=== PATIENT | male | born 1975 | race Caucasian/White ===

== ENCOUNTER 2017-10-13 12:22 | Emergency (ER) | payer SELFPAY ==
[2017-10-13 13:15] LABS: Absolute Lymphocytes (CBC) 1.2 K/uL (0.7-4.9); Absolute Monocytes 0.5 K/uL (0.1-1.3); Absolute Neutrophil 4.4 K/uL (1.8-8.0); Basophils % 0.5 % (0-1.3); Eosinophils % 2.3 % (0-4.4); Hematocrit 42.4 % (39.6-49.0); Lymphocytes % 19.6 % (15.3-44.8); MCH 29.9 pg (27.0-35.0); MCV 91.2 fL (80-100); MPV 8.1 fL (7.6-11.3); Monocytes % 7.3 % (3.3-12.3); RBC Red Blood Cell Count 4.64 M/uL (4.33-5.43)
--- NOTE | 2017-10-13 13:21 | RAD REPORT ---
EXAM DESCRIPTION: RAD - Chest Single View - 10/13/2017 1:11 pm CLINICAL HISTORY: Chest pain radiating to the left arm COMPARISON: None. TECHNIQUE: AP portable chest image was obtained 1307 hours . FINDINGS: Lungs are clear. Heart and vasculature are normal. No measurable pleural effusion and no p neumothorax. No gross bony abnormality seen. No acute aortic findings suspected. IMPRESSION: No acute cardiopulmonary process.
[2017-10-13 13:25] LABS: Protime INR 1.03
[2017-10-13 13:33] LABS: ALT/SGPT 21 U/L (12-78); AST/SGOT 16 U/L (15-37); Albumin 3.4 g/dL (3.4-5.0); Alkaline Phosphatase 64 U/L (45-117); BUN Blood Urea Nitrogen 14 mg/dL (7-18); Bicarbonate 28 mmol/L (21-32); Bilirubin Direct < 0.1 mg/dL (0-0.2); Bilirubin Total 0.3 mg/dL (0.2-1.0); CKMB Creatine Kinase MB < 1.0 ng/mL (0.3-3.6); Creatine Phosphokinase 53 U/L (39-308); Glucose Level 89 mg/dL (74-106); Magnesium 2.2 mg/dL (1.8-2.4); NT PRO-BNP 40 pg/mL (<125); Potassium 4.2 mmol/L (3.5-5.1); Protein, Total 7.4 g/dL (6.4-8.2); Sodium Level 139 mmol/L (136-145)
[2017-10-13] MEDS ORDERED: ASPIRIN 81 MG CHEWABLE TABLET ONE (13:50)
[2017-10-13] MEDS ORDERED: MORPHINE 4 MG/ML SYR ONE (13:55)
[2017-10-13] MEDS ORDERED: ONDANSETRON 4 MG/2 ML VIAL ONE (13:55)
[2017-10-13] MEDS ORDERED: HYDROCODONE/APAP 7.5/325 MG TAB ONE (14:58)
[2017-10-13] MEDS ORDERED: KETOROLAC 30 MG/ML INJ ONE (14:58)
--- NOTE | 2017-10-13 15:25 | ER ---
Nurse's Notes [facility] Name: Anton Paez Age: 42 yrs Sex: Male : 1975 Arrival Date: 10/13/2017 Time: 12:24 Bed 20 Private MD: None, None Diagnosis: Chest pain, unspecified;Chest pain on breathing Presentation: 10/13 12:33 Presenting complaint: Patient states: "Val had chest pains off and on for a week. lk1 Yesterday my left arm started feeling numb.". Transition of care: patient was not received from another setting of care. Onset of symptoms was October 06, 2017. Risk Assessment: Do you want to hurt yourself or someone else? Patient reports no desire to harm self or others. Initial Sepsis Screen: Does the patient meet any 2 criteria? No. Patient's initial sepsis screen is negative. Does the patient have a suspected source of infection? No. Patient's initial sepsis screen is negative. Care prior to arrival: None. 12:33 Method Of Arrival: Ambulatory lk1 12:33 Acuity: CHARLES 3 lk1 Historical: - Allergies: 12:34 No Known Allergies; lk1 - PMHx: 12:34 None; lk1 - PSHx: 12:34 None; lk1 - Immunization history:: Adult Immunizations up to date. - Social history:: Smoking status: Patient uses tobacco products, smokes one pack cigarettes per day. - Ebola Screening: : No symptoms or risks identified at this time. Screenin:37 Abuse screen: Denies threats or abuse. Denies injuries from another. Nutritional hb screening: No deficits noted. Tuberculosis screening: No symptoms or risk factors identified. Fall Risk None identified. Assessment: 12:37 General: Appears in no apparent distress. uncomfortable, Behavior is calm, cooperative. hb Pain: Pain does not radiate. Pain currently is 6 out of 10 on a pain scale. Quality of pain is described as pressure, Pain began gradually, 2-3 days ago. Neuro: Level of Consciousness is awake, alert, obeys commands, Oriented to person, place, time, situation. Cardiovascular: Heart tones S1 S2 present Capillary refill < 3 seconds Patient's skin is warm and dry. Respiratory: Airway is patent Trachea midline Respiratory effort is even, unlabored, Respiratory pattern is regular, symmetrical, Breath sounds are clear bilaterally. GI: No signs and/or symptoms were reported involving the gastrointestinal system. : No signs and/or symptoms were reported regarding the genitourinary system. EENT: No signs and/or symptoms were reported regarding the EENT system. Derm: Skin is intact, is healthy with good turgor, Skin is pink, warm \\T\\ dry. Musculoskeletal: No signs and/or symptoms reported regarding the musculoskeletal system. 13:30 Reassessment: Patient appears in no apparent distress at this time. No changes from hb previously documented assessment. Patient and/or family updated on plan of care and expected duration. Pain level reassessed. Patient is alert, oriented x 3, equal unlabored respirations, skin warm/dry/pink. 14:30 Reassessment: Patient appears in no apparent distress at this time. No changes from hb previously documented assessment. Patient and/or family updated on plan of care and expected duration. Pain level reassessed. Patient is alert, oriented x 3, equal unlabored respirations, skin warm/dry/pink. 15:30 Reassessment: Patient appears in no apparent distress at this time. Patient and/or hb family updated on plan of care and expected duration. Pain level reassessed. Patient is alert, oriented x 3, equal unlabored respirations, skin warm/dry/pink. Patient states symptoms have improved. Vital Signs: 12:34 BP 149 / 96; Pulse 78; Resp 11; Temp 98.1(TE); Pulse Ox 98% on R/A; Weight 77.11 kg lk1 (R); Height 6 ft. 0 in. (182.88 cm) (R); Pain 6/10; 13:30 BP 144 / 83; Pulse 56; Resp 15; Pulse Ox 100% on R/A; hb 12:34 Body Mass Index 23.06 (77.11 kg, 182.88 cm) lk1 ED Course: 12:24 Patient arrived in ED. mr 12:24 None, None is Private Physician. mr 12:33 Antony Muller MD is Attending Physician. kdr 12:34 Triage completed. lk1 12:34 Arm band placed on right wrist. lk1 12:35 Deena Alvarado, JOSIANE is Primary Nurse. hb 12:36 Inserted saline lock: 18 gauge in right antecubital area, using aseptic technique. hb Blood collected. 12:37 Patient has correct armband on for positive identification. Bed in low position. Call hb light in reach. Side rails up X 1. monitoring and evaluation advisor on. Pulse ox on. NIBP on. 13:00 Patient maintains SpO2 saturation greater than 95% on room air. hb 13:10 X-ray completed. Portable x-ray completed in exam room. Patient tolerated procedure kp1 well. 13:10 XRAY Chest (1 view) In Process Unspecified. EDMS 13:15 EKG done, by senior maintenance technician. reviewed by Antony Muller MD. at1 15:32 EKG done, by senior maintenance technician. reviewed by Antony Muller MD. sm3 15:52 No provider procedures requiring assistance completed. hb 15:52 IV discontinued, intact, bleeding controlled, No redness/swelling at site. Pressure hb dressing applied. Administered Medications: 13:50 Drug: Aspirin Chewable Tablet 324 mg Route: PO; hb 14:30 Follow up: Response: No adverse reaction hb 13:50 Drug: morphine 4 mg Route: IVP; Site: right antecubital; hb 14:40 Follow up: Response: No adverse reaction; Pain is decreased hb 13:50 Drug: Zofran 4 mg Route: IVP; Site: right antecubital; hb 14:30 Follow up: Response: No adverse reaction hb 15:10 Drug: TORadol 30 mg Route: IVP; Site: right antecubital; hb 15:43 Follow up: Response: No adverse reaction; Pain is decreased hb 15:44 Drug: Elmore (7.5 mg-325 mg) 1 tabs Route: PO; hb 15:51 Follow up: Response: Medication administered at discharge. hb Outcome: 15:24 Discharge ordered by . kdr 15:52 Discharged to home ambulatory, with family. hb 15:52 Condition: stable 15:52 Discharge instructions given to patient, family, Instructed on discharge instructions, follow up and referral plans. medication usage, Demonstrated understanding of instructions, follow-up care, medications, Prescriptions given X 3. 15:53 Patient left the ED. hb Signatures: Dispatcher [employer] EDID Antony Muller MD MD kdr Rivera, Maria mr madai Amanda, cream cheese maker EKG Tat1 Katharina Chilel RN RN lk1 Deena Alvarado RN RN Estephania Beatty kp1 Juliet Joshua sm3
--- NOTE | 2017-10-13 15:25 | EDPHYS ---
Physician Documentation [facility] Name: Anton Paez Age: 42 yrs Sex: Male : 1975 Arrival Date: 10/13/2017 Time: 12:24 Bed 20 Private MD: None, None ED Physician Antony Muller HPI: 10/13 19:01 This 42 yrs old Male presents to ER via Ambulatory with complaints of Chest kdr Pain. 19:01 The patient or guardian reports chest pain that is located primarily in the anterior kdr chest wall, left. Onset: gradually, 4 day(s) ago, and became persistent. The pain radiates to the left shoulder. Associated signs and symptoms: Pertinent positives: nausea, shortness of breath. The chest pain is described as aching, dull, a pressure. Duration: The patient or guardian reports multiple episodes, that are intermittent, that wax and wane, with no pattern. Modifying factors: The symptoms are alleviated by nothing. the symptoms are aggravated by breathing, emotionally stressful situations, movement. Severity of pain: At its worst the pain was moderate just prior to arrival, in the emergency department the pain is unchanged. The patient has not experienced similar symptoms in the past. The patient has not recently seen a physician. States that all male family members have passed before the age of 50. Historical: - Allergies: 12:34 No Known Allergies; lk1 - PMHx: 12:34 None; lk1 - PSHx: 12:34 None; lk1 - Immunization history:: Adult Immunizations up to date. - Social history:: Smoking status: Patient uses tobacco products, smokes one pack cigarettes per day. - Ebola Screening: : No symptoms or risks identified at this time. ROS: 19:01 Constitutional: Negative for fever, chills, and weight loss, Eyes: Negative for injury, kdr pain, redness, and discharge, ENT: Negative for injury, pain, and discharge, Neck: Negative for injury, pain, and swelling, Respiratory: Negative for shortness of breath, cough, wheezing, and pleuritic chest pain, Abdomen/GI: Negative for abdominal pain, nausea, vomiting, diarrhea, and constipation, Back: Negative for injury and pain, : Negative for injury, bleeding, discharge, and swelling, MS/Extremity: Negative for injury and deformity, Skin: Negative for injury, rash, and discoloration, Neuro: Negative for headache, weakness, numbness, tingling, and seizure activity. Psych: Negative for depression, anxiety, suicide ideation, homicidal ideation, and hallucinations, Allergy/Immunology: Negative for hives, rash, and allergies, Endocrine: Negative for neck swelling, polydipsia, polyuria, polyphagia, and marked weight changes, Hematologic/Lymphatic: Negative for swollen nodes, abnormal bleeding, and unusual bruising. 19:01 Cardiovascular: Positive for chest pain, Negative for edema, orthopnea, palpitations, paroxysmal nocturnal dyspnea. Exam: 19:01 Constitutional: This is a well developed, well nourished patient who is awake, alert, kdr and in no acute distress. Head/Face: Normocephalic, atraumatic. Eyes: Pupils equal round and reactive to light, extra-ocular motions intact. Lids and lashes normal. Conjunctiva and sclera are non-icteric and not injected. Cornea within normal limits. Periorbital areas with no swelling, redness, or edema. Neck: Trachea midline, no thyromegaly or masses palpated, and no cervical lymphadenopathy. Supple, full range of motion without nuchal rigidity, or vertebral point tenderness. No Meningismus. Chest/axilla: Normal chest wall appearance and motion. Nontender with no deformity. No lesions are appreciated. Cardiovascular: Regular rate and rhythm with a normal S1 and S2. No gallops, murmurs, or rubs. Normal PMI, no JVD. No pulse deficits. Respiratory: Lungs have equal breath sounds bilaterally, clear to auscultation and percussion. No rales, rhonchi or wheezes noted. No increased work of breathing, no retractions or nasal flaring. Abdomen/GI: Soft, non-tender, with normal bowel sounds. No distension or tympany. No guarding or rebound. No evidence of tenderness throughout. Back: No spinal tenderness. No costovertebral tenderness. Full range of motion. Skin: Warm, dry with normal turgor. Normal color with no rashes, no lesions, and no evidence of cellulitis. MS/ Extremity: Pulses equal, no cyanosis. Neurovascular intact. Full, normal range of motion. Neuro: Awake and alert, GCS 15, oriented to person, place, time, and situation. Cranial nerves II-XII grossly intact. Motor strength 5/5 in all extremities. Sensory grossly intact. Cerebellar exam normal. Normal gait. Psych: Awake, alert, with orientation to person, place and time. Behavior, mood, and affect are within normal limits. Vital Signs: 12:34 BP 149 / 96; Pulse 78; Resp 11; Temp 98.1(TE); Pulse Ox 98% on R/A; Weight 77.11 kg lk1 (R); Height 6 ft. 0 in. (182.88 cm) (R); Pain 6/10; 13:30 BP 144 / 83; Pulse 56; Resp 15; Pulse Ox 100% on R/A; hb 12:34 Body Mass Index 23.06 (77.11 kg, 182.88 cm) lk1 MDM: 15:24 Patient medically screened. kdr 19:01 Data reviewed: vital signs, nurses notes, lab test result(s), radiologic studies. kdr Counseling: I had a detailed discussion with the patient and/or guardian regarding: the historical points, exam findings, and any diagnostic results supporting the discharge/admit diagnosis, lab results, radiology results, the need for outpatient follow up. 10/13 12:56 Order name: Basic Metabolic Panel; Complete Time: 14:30 [facility] 10/13 12:56 Order name: CBC with Diff; Complete Time: 14:30 [facility] 10/13 12:56 Order name: Ckmb; Complete Time: 14:30 [facility] 10/13 12:56 Order name: CPK; Complete Time: 14:30 [facility] 10/13 12:56 Order name: LFT's; Complete Time: 14:30 [facility] 10/13 12:56 Order name: Magnesium; Complete Time: 14:30 [facility] 10/13 12:56 Order name: NT PRO-BNP; Complete Time: 14:30 [facility] 10/13 12:56 Order name: PT-INR; Complete Time: 14:30 [facility] 10/13 12:56 Order name: Ptt, Activated; Complete Time: 14:30 [facility] 10/13 12:56 Order name: Troponin (emerg Dept Use Only); Complete Time: 14:30 [facility] 10/13 12:56 Order name: XRAY Chest (1 view); Complete Time: 14:30 [facility] 10/13 13:18 Order name: ETOH Level; Complete Time: 14:30 [facility] 10/13 14:43 Order name: Troponin (emerg Dept Use Only); Complete Time: 15:20 [facility] 10/13 12:56 Order name: EKG; Complete Time: 12:57 [facility] 10/13 12:56 Order name: Cardiac monitoring; Complete Time: 13:02 [facility] 10/13 12:56 Order name: EKG - Nurse/Tech; Complete Time: 13:03 [facility] 10/13 12:56 Order name: IV Saline Lock; Complete Time: 13:03 [facility] 10/13 12:56 Order name: Labs collected and sent; Complete Time: 13:03 [facility] 10/13 12:56 Order name: O2 Per Protocol; Complete Time: 13:03 [facility] 10/13 12:56 Order name: O2 Sat Monitoring; Complete Time: 13:03 [facility] 10/13 14:43 Order name: EKG - Nurse/Tech; Complete Time: 15:23 kdr Administered Medications: 13:50 Drug: Aspirin Chewable Tablet 324 mg Route: PO; hb 14:30 Follow up: Response: No adverse reaction hb 13:50 Drug: morphine 4 mg Route: IVP; Site: right antecubital; hb 14:40 Follow up: Response: No adverse reaction; Pain is decreased hb 13:50 Drug: Zofran 4 mg Route: IVP; Site: right antecubital; hb 14:30 Follow up: Response: No adverse reaction hb 15:10 Drug: TORadol 30 mg Route: IVP; Site: right antecubital; hb 15:43 Follow up: Response: No adverse reaction; Pain is decreased hb 15:44 Drug: [place] (7.5 mg-325 mg) 1 tabs Route: PO; hb 15:51 Follow up: Response: Medication administered at discharge. hb Disposition: 10/13/17 15:24 Discharged to Home. Impression: Chest pain, unspecified, Chest pain on breathing. - Condition is Stable. - Discharge Instructions: Nonspecific Chest Pain, [id number]. - Prescriptions for ketorolac 10 mg Oral tablet - take 1 tablet by ORAL route every 4-6 hours As needed not to exceed 40 mg in 24hrs; 15 tablet. Tramadol 50 mg Oral Tablet - take 1 tablet by ORAL route every 8 hours as needed; 12 tablet. Medrol (Jacky) 4 mg Oral Tablets, Dose Pack - take 1 tablet by ORAL route as directed - follow package instructions; 1 packet. - Medication Reconciliation Form, Thank You Letter, Antibiotic Education, Prescription Opioid Use, Work release form, Family Work Release form. - Follow up: Private Physician; When: 2 - 3 days; Reason: If symptoms return, Further diagnostic work-up, Recheck today's complaints, Continuance of care, Re-evaluation by your physician. - Problem is new. - Symptoms have improved. Signatures: Dispatcher [employer] EDMS Antony Muller MD MD [facility] Katharina Chilel RN RN lk1 Deena Alvarado RN RN Diane Allison [facility] Corrections: (The following items were deleted from the chart) 15:53 15:24 10/13/2017 15:24 Discharged to Home. Impression: Chest pain, unspecified; Chest hb pain on breathing. Condition is Stable. Forms are Medication Reconciliation Form, Thank You Letter, Antibiotic Education, Prescription Opioid Use. Follow up: Private Physician; When: 2 - 3 days; Reason: If symptoms return, Further diagnostic work-up, Recheck today's complaints, Continuance of care, Re-evaluation by your physician. Problem is new. Symptoms have improved. kdr
[2017-10-13 15:57] VITALS: TEMP 98.1
[2017-10-13 15:58] VITALS: BP 144/83; O2SAT 100
--- NOTE | 2017-10-14 06:25 | EKG ---
Test Date: 2017-10-13 Test Time: 15:32:51 Hotel Front Desk Clerk: TAHIR MEASUREMENT RESULTS: Intervals: Rate: 48 CT: 154 QRSD: 88 QT: 412 QTc: 368 [place]: P: 74 CT: 154 QRS: 63 T: 47 INTERPRETIVE STATEMENTS: Sinus bradycardia Otherwise normal ECG Compared to ECG 10/13/2017 12:42:44 Sinus rhythm no longer present Electronically Signed On 10-14-17 06:25:07 CDT by Trae Hickey
--- NOTE | 2017-10-14 06:26 | EKG ---
Test Date: 2017-10-13 Test Time: 12:42:44 Window Cutter: AUDI MEASUREMENT RESULTS: Intervals: Rate: 70 UT: 158 QRSD: 82 QT: 360 QTc: 388 [place]: P: 75 UT: 158 QRS: 61 T: 47 INTERPRETIVE STATEMENTS: Normal sinus rhythm Normal ECG No previous ECG available for comparison Electronically Signed On 10-14-17 06:25:29 CDT by Trae Hickey
== END 2017-10-13 15:53 | disposition home or self-care (01) ==
LOC: ER 12:22
DX: R07.1 Chest pain on breathing (principal); F17.210 Nicotine dependence, cigarettes, uncomplicated
CPT/HCPCS: 36415; 71045; 80048; 80076; 80320; 82550; 82553; 83735; 83880; 84484; 85025; 85610; 85730; 93005; 96374; 96375; 99285; J2405

== ENCOUNTER 2020-01-28 06:34 | Emergency (ER) | payer SELFPAY ==
--- OUTSIDE RECORDS SUMMARY | 2020-01-28 06:35 | XMS REPORT | Continuity of Care Document ---
:1975 Author Organization [facility] t Address [address] [place] [address] Care Team Providers Name Role Phone Unavailable Unavailable Unavailable Payers Payer Name Policy Type Policy Number Effective Date Expiration Date S ource Problems This patient has no known problems. Allergies, Adverse Reactions, Alerts Allergy Allergy Status Severity Reaction(s) Onset Inactive Treating Comm ents Source Name Type Date Date Clinician No Known DA Active U NELA Allergconcha 06-22 Steffen s 00:00: d 00 [facility] Medications This patient has no known medications. Procedures This patient has no known procedures. Results This patient has no known results.
--- NOTE | 2020-01-28 08:34 | RAD REPORT ---
EXAM DESCRIPTION: RAD - Shoulder Right 2 View - 01/28/2020 8:24 am CLINICAL HISTORY: Right shoulder pain FINDINGS: No fracture or dislocation is seen. Mild osteoarthritis AC joint
--- NOTE | 2020-01-28 08:58 | EDPHYS ---
Physician Documentation [facility] Name: Anton Paez Age: 44 yrs Sex: Male : 1975 Arrival Date: 01/28/2020 Time: 06:36 Bed 19 Private MD: TOMASZ Physician Juaquin Grullon HPI: 01/27 08:51 This 44 yrs old Male presents to ER via Ambulatory with complaints of Arm joe Injury. 08:51 The patient or guardian complains of decreased range of motion, injury, pain. The joe complaints affect the anterior aspect of right shoulder and posterior aspect of right shoulder. Context: The problem was sustained outdoors. Onset: The symptoms/episode began/occurred 2 day(s) ago. Treatment prior to arrival includes: no previous treatment, sling. Modifying factors: The symptoms are alleviated by remaining still, the symptoms are aggravated by movement, lifting weight. Associated signs and symptoms: The patient has no apparent associated signs or symptoms. Severity of symptoms: At their worst the symptoms were mild, moderate, in the emergency department the symptoms are unchanged. The patient has experienced a previous episode, approximately 10 years ago. Historical: - Allergies: 06:53 No Known Allergies; bb - Home Meds: 06:53 None [Active]; bb - PMHx: 06:53 None; bb - PSHx: 06:53 None; bb - Immunization history:: Adult Immunizations up to date. - Social history:: Smoking status: Patient reports the use of cigarette tobacco products, smokes one-half pack cigarettes per day, Patient uses alcohol, occasionally. Patient/guardian denies using street drugs. - Family history:: not pertinent. ROS: 08:51 Constitutional: Negative for fever, chills, and weight loss, Eyes: Negative for injury, joe pain, redness, and discharge, ENT: Negative for injury, pain, and discharge, Neck: Negative for injury, pain, and swelling, Cardiovascular: Negative for chest pain, palpitations, and edema, Respiratory: Negative for shortness of breath, cough, wheezing, and pleuritic chest pain, Abdomen/GI: Negative for abdominal pain, nausea, vomiting, diarrhea, and constipation, Back: Negative for injury and pain, : Negative for injury, bleeding, discharge, and swelling, Skin: Negative for injury, rash, and discoloration, Neuro: Negative for headache, weakness, numbness, tingling, and seizure, Psych: Negative for depression, anxiety, suicide ideation, homicidal ideation, and hallucinations, Allergy/Immunology: Negative for hives, rash, and allergies, Endocrine: Negative for neck swelling, polydipsia, polyuria, polyphagia, and marked weight changes, Hematologic/Lymphatic: Negative for swollen nodes, abnormal bleeding, and unusual bruising. 08:51 MS/extremity: Positive for injury or acute deformity, decreased range of motion, pain, tenderness, of the anterior aspect of right shoulder and posterior aspect of right shoulder. Exam: 08:51 Constitutional: This is a well developed, well nourished patient who is awake, alert, joe and in no acute distress. Head/Face: Normocephalic, atraumatic. Eyes: Pupils equal round and reactive to light, extra-ocular motions intact. Lids and lashes normal. Conjunctiva and sclera are non-icteric and not injected. Cornea within normal limits. Periorbital areas with no swelling, redness, or edema. ENT: Nares patent. No nasal discharge, no septal abnormalities noted. Tympanic membranes are normal and external auditory canals are clear. Oropharynx with no redness, swelling, or masses, exudates, or evidence of obstruction, uvula midline. Mucous membranes moist. Neck: Trachea midline, no thyromegaly or masses palpated, and no cervical lymphadenopathy. Supple, full range of motion without nuchal rigidity, or vertebral point tenderness. No Meningismus. Chest/axilla: Normal chest wall appearance and motion. Nontender with no deformity. No lesions are appreciated. Cardiovascular: Regular rate and rhythm with a normal S1 and S2. No gallops, murmurs, or rubs. Normal PMI, no JVD. No pulse deficits. Respiratory: Lungs have equal breath sounds bilaterally, clear to auscultation and percussion. No rales, rhonchi or wheezes noted. No increased work of breathing, no retractions or nasal flaring. Abdomen/GI: Soft, non-tender, with normal bowel sounds. No distension or tympany. No guarding or rebound. No evidence of tenderness throughout. Back: No spinal tenderness. No costovertebral tenderness. Full range of motion. Skin: Warm, dry with normal turgor. Normal color with no rashes, no lesions, and no evidence of cellulitis. Neuro: Awake and alert, GCS 15, oriented to person, place, time, and situation. Cranial nerves II-XII grossly intact. Motor strength 5/5 in all extremities. Sensory grossly intact. Cerebellar exam normal. Normal gait. Psych: Awake, alert, with orientation to person, place and time. Behavior, mood, and affect are within normal limits. 08:51 Musculoskeletal/extremity: ROM: limited active range of motion due to pain, limited passive range of motion due to pain, Circulation is intact in all extremities. Sensation intact. Compartment Syndrome exam of affected extremity: is normal. DVT Exam: negative Homans' sign noted on exam, no appreciated bluish discoloration, no erythema, no increased warmth, pain, swelling, tenderness. Vital Signs: 06:46 BP 153 / 101; Pulse 67; Resp 20; Temp 97.8(O); Pulse Ox 97% on R/A; Weight 89.36 kg tt3 (R); Height 6 ft. 0 in. (182.88 cm) (R); Pain 2/10; 07:13 BP 151 / 85; Pulse 55; Resp 16; Pulse Ox 99% ; bp 08:00 BP 153 / 109; Pulse 68; Resp 16; Pulse Ox 100% ; bp 09:00 BP 163 / 100; Pulse 57; Resp 16; Pulse Ox 98% ; bp 06:46 Body Mass Index 26.72 (89.36 kg, 182.88 cm) tt3 MDM: 08:19 Patient medically screened. joe 08:56 Data reviewed: vital signs, nurses notes, radiologic studies, plain films. joe 09:00 Differential diagnosis: closed fracture, contusion, abrasion, tendonitis. Data joe interpreted: loan analyst: rate is 55 beats/min, rhythm is regular. Test interpretation: by ED physician or midlevel provider: plain radiologic studies. Counseling: I had a detailed discussion with the patient and/or guardian regarding: the historical points, exam findings, and any diagnostic results supporting the discharge/admit diagnosis, radiology results, the need for outpatient follow up, for definitive care, a orthopedic surgeon. 01/27 07:11 Order name: Shoulder Right (2 View) XRAY; Complete Time: 08:37 tw4 01/27 08:37 Order name: Ice pack; Complete Time: 08:43 joe Administered Medications: 08:45 Drug: Motrin 600 mg Route: PO; bp 09:09 Follow up: Response: No adverse reaction; Pain is decreased bp Disposition: 01/28/20 08:58 Discharged to Home. Impression: Fall down embankment (hill), Pain in right shoulder, Injury of muscle(s) and tendon(s) of the rotator cuff of shoulder. - Condition is Stable. - Discharge Instructions: Joint Pain, Musculoskeletal Pain, Shoulder Pain, Cryotherapy, [id number], Shoulder Pain, [id number]-[id number], Cryotherapy. - Prescriptions for Ibuprofen 600 mg Oral Tablet - take 1 tablet by ORAL route every 6 hours As needed take with food; 24 tablet. Tylenol- Codeine #3 300-30 mg Oral Tablet - take 2 tablets by ORAL route every 6 hours As needed; 24 tablet. Cyclobenzaprine 5 mg Oral Tablet - take 1 tablet by ORAL route 3 times per day As needed; 15 tablet. - Medication Reconciliation Form, Thank You Letter, Antibiotic Education, Prescription Opioid Use form. - Follow up: Private Physician; When: 2 - 3 days; Reason: Recheck today's complaints, Continuance of care, Re-evaluation by your physician. Follow up: Elpidio Matthew MD; When: 2 - 3 days; Reason: Recheck today's complaints, Continuance of care, Re-evaluation by your physician. - Problem is new. - Symptoms have improved. Signatures: Dispatcher [employer] EDJuaquin Gould MD MD cha Ballard, Brenda, JOSIANE RN Aayush Guerra RN RN bp Corrections: (The following items were deleted from the chart) 09:11 08:58 01/28/2020 08:58 Discharged to Home. Impression: Fall down embankment (hill); bp Pain in right shoulder; Injury of muscle(s) and tendon(s) of the rotator cuff of shoulder. Condition is Stable. Forms are Medication Reconciliation Form, Thank You Letter, Antibiotic Education, Prescription Opioid Use. Follow up: Private Physician; When: 2 - 3 days; Reason: Recheck today's complaints, Continuance of care, Re-evaluation by your physician. Follow up: Dr. Elpidio Matthew; When: 2 - 3 days; Reason: Recheck today's complaints, Continuance of care, Re-evaluation by your physician. Problem is new. Symptoms have improved. joe
--- NOTE | 2020-01-28 08:58 | ER ---
Nurse's Notes [facility] Name: Anton Paez Age: 44 yrs Sex: Male : 1975 Arrival Date: 01/28/2020 Time: 06:36 Bed 19 Private MD: Diagnosis: Fall down embankment (hill);Pain in right shoulder;Injury of muscle(s) and tendon(s) of the rotator cuff of shoulder Presentation: 01/27 06:51 Chief complaint: Patient states: he slipped on grabbing a hand rail to keep bb from falling and injured his right shoulder which is very painful at this time. Coronavirus screen: At this time, the client does not indicate any symptoms associated with coronavirus-19. Ebola Screen: No symptoms or risks identified at this time. Initial Sepsis Screen: Does the patient meet any 2 criteria? No. Patient's initial sepsis screen is negative. Does the patient have a suspected source of infection? No. Patient's initial sepsis screen is negative. Risk Assessment: Do you want to hurt yourself or someone else? Patient reports no desire to harm self or others. Onset of symptoms was January 24, 2020. 06:51 Method Of Arrival: Ambulatory bb 06:51 Acuity: CHARLES 4 bb Triage Assessment: 06:53 General: Appears in no apparent distress. uncomfortable, Behavior is calm, cooperative. bb Pain: Complains of pain in right shoulder Pain currently is 2 out of 10 on a pain scale. Neuro: Level of Consciousness is awake, alert, obeys commands, Oriented to person, place, time, situation. Cardiovascular: No deficits noted. Respiratory: Respiratory effort is even, unlabored, Respiratory pattern is regular. GI: No signs and/or symptoms were reported involving the gastrointestinal system. Derm: Skin is pink, warm \T\ dry. Musculoskeletal: Circulation, motion, and sensation intact. Reports pain in right shoulder. Historical: - Allergies: 06:53 No Known Allergies; bb - Home Meds: 06:53 None [Active]; bb - PMHx: 06:53 None; bb - PSHx: 06:53 None; bb - Immunization history:: Adult Immunizations up to date. - Social history:: Smoking status: Patient reports the use of cigarette tobacco products, smokes one-half pack cigarettes per day, Patient uses alcohol, occasionally. Patient/guardian denies using street drugs. - Family history:: not pertinent. Screenin:54 Abuse screen: Denies threats or abuse. Nutritional screening: No deficits noted. bb Tuberculosis screening: No symptoms or risk factors identified. Fall Risk None identified. Assessment: 06:54 Reassessment: No changes from previously documented assessment. see triage assessment. bb 07:00 Reassessment: RECD REPORT FROM ARIE JOSHUA. 44YO WM P/W R ARM PAIN, NO OBVIOUS INJURY. bp 09:10 Reassessment: PT D/C HOME AMBULATORY, DX WITH R ROTATOR CUFF INJURY. bp Vital Signs: 06:46 BP 153 / 101; Pulse 67; Resp 20; Temp 97.8(O); Pulse Ox 97% on R/A; Weight 89.36 kg tt3 (R); Height 6 ft. 0 in. (182.88 cm) (R); Pain 2/10; 07:13 BP 151 / 85; Pulse 55; Resp 16; Pulse Ox 99% ; bp 08:00 BP 153 / 109; Pulse 68; Resp 16; Pulse Ox 100% ; bp 09:00 BP 163 / 100; Pulse 57; Resp 16; Pulse Ox 98% ; bp 06:46 Body Mass Index 26.72 (89.36 kg, 182.88 cm) tt3 ED Course: 06:36 Patient arrived in ED. bp1 06:52 Triage completed. bb 06:53 Arm band placed on Patient placed in an exam room, on a stretcher, on pulse oximetry. bb 06:54 Patient has correct armband on for positive identification. Bed in low position. Call bb light in reach. Pulse ox on. NIBP on. 07:00 Aayush Alas, JOSIANE is Primary Nurse. bp 08:19 Juaquin Grullon MD is Attending Physician. joe 08:21 Shoulder Right (2 View) XRAY Sent. bp 08:24 Shoulder Right (2 View) XRAY In Process Unspecified. EDMS 08:57 Elpidio Matthew MD is Referral Physician. joe 09:10 No provider procedures requiring assistance completed. Patient did not have IV access bp during this emergency room visit. Administered Medications: 08:45 Drug: Motrin 600 mg Route: PO; bp 09:09 Follow up: Response: No adverse reaction; Pain is decreased bp Outcome: 08:58 Discharge ordered by . joe 09:10 Discharged to home ambulatory. bp 09:10 Condition: stable 09:10 Discharge instructions given to patient, Instructed on discharge instructions, follow up and referral plans. medication usage, Demonstrated understanding of instructions, follow-up care, medications, Prescriptions given X 3. 09:11 Patient left the ED. bp Signatures: Dispatcher [employer] EDMS Juaquin Grullon MD MD cha Ballard, Brenda, RN RN Aayush Guerra RN RN Nica Albert bp1 Lebron Dave tt3
[2020-01-28] MEDS ORDERED: IBUPROFEN 200 MG TAB PO ONE (08:59)
[2020-01-28 09:18] VITALS: TEMP 97.8
[2020-01-28 09:23] VITALS: BP 163/100; O2SAT 98
== END 2020-01-28 09:11 | disposition home or self-care (01) ==
LOC: ER 06:34
DX: S46.001A Unspecified injury of muscle(s) and tendon(s) of the rotator cuff of right shoulder, initial encounter (principal); W17.81XA Fall down embankment (hill), initial encounter; Y93.01 Activity, walking, marching and hiking; Y92.89 Other specified places as the place of occurrence of the external cause; F17.210 Nicotine dependence, cigarettes, uncomplicated
CPT/HCPCS: 99284